=== PATIENT | female | born 1985 | race Two or more races ===

== ENCOUNTER → 2016-06-10 | Outpatient (CLI) | payer MEDICAID ==
[2016-06-10 17:42] LABS: Follicle Stimulating Hormone 3.9 mIU/mL; Prolactin 20.6 ng/mL (3.0-18.6)
--- NOTE | 2016-06-10 19:15 | US ---
EXAMINATION TYPE: US pelvic complete DATE OF EXAM: 06/10/2016 5:11 PM COMPARISON: NONE CLINICAL HISTORY: R93.8 Thickened endometrium. TECHNIQUE: Transabdominal (TA) Date of LMP: 05/05/16 EXAM MEASUREMENTS: Uterus: 10.1 x 4.6 x6.0 cm Endometrial Stripe: 1.0 cm Right Ovary: 3.1 x 2.2. x 2.4 cm Left Ovary: 2.1 x 1.8 x 1.8 cm TECHNOLOGIST IMPRESSION: 1. Uterus: Anteverted 2. Endometrium: wnl 3. Right Ovary: wnl 4. Left Ovary: wnl 5. Bilateral Adnexa: wnl 6. Posterior cul-de-sac: wnl IMPRESSION: Negative transabdominal pelvic sonogram. No endometrial thickening seen. Endometrium is 1 0 mm.
== END | disposition home or self-care (01) ==
LOC: RADUSWWP 16:16
PROVIDERS: ATTEND Obstetrics & Gynecology
DX: R93.8 Abnormal findings on diagnostic imaging of other specified body structures (principal)
CPT/HCPCS: 36415; 76856; 82670; 83001; 83002; 84146; 84443

== ENCOUNTER → 2016-06-10 | Outpatient (CLI) | payer MEDICAID | END | disposition home or self-care (01) | LOC: LABWHC1 16:32 | PROVIDERS: ATTEND Obstetrics & Gynecology | DX: Z53.9 Procedure and treatment not carried out, unspecified reason (principal) ==

== ENCOUNTER 2017-02-10 15:10 | Emergency (ER) | payer MEDICAID ==
[2017-02-10] MEDS ORDERED: KETOROLAC 30 MG/ML 1 ML VIAL IVP STA (17:18)
[2017-02-10] MEDS ORDERED: METOCLOPRAMIDE 5 MG/ML 2 ML VIAL IVP STA (17:18)
[2017-02-10] MEDS ORDERED: diphenhydrAMINE 50 MG/ML 1 ML VIAL IVP STA (17:18)
[2017-02-10] MEDS ORDERED: SODIUM CHLORIDE 0.9% 1,000 ML IV ONE (17:18)
--- NOTE | 2017-02-10 17:22 | ED ---
Headache HPI - General Chief Complaint: Headache Stated Complaint: Headache Time Seen by Provider: 02/10/17 17:03 Source: RN notes reviewed, old records reviewed Mode of arrival: ambulatory Limitations: no limitations - History of Present Illness Initial Comments: 31-year-old female presents emergency Department chief complaint of increased sinus pressure and headache for the past 3 days. Patient reports she has diagnosis of sinusitis by her primary care provider on Friday was started on Bactrim. He told her to discontinue taking Mucinex DM or other decongestant medicine as it would not continue to help. She reports that over the past day she's had severe headaches. She reports that whenever she lays down or sharp position she has severe pressure in her head. Patient states that she's had no fever or chills. Patient states that she has had a mild productive cough. Patient relates that she's been taking her antibiotics as well as using a nasal spray. Patient reports she has been testing for ALLERGIES. She does take Claritin every single day. Patient relates that the headaches and sinus pressure don't seem to be getting any better. She is currently on her menstrual cycle and took tramadol for menstrual cramping. She reports that that somewhat helped with her headache. Patient is concerned he does not she's having some pain and tenderness in the left anterior and behind the left ear. - Related Data Home Medications Medication Instructions Recorded Confirmed Fluticasone Nasal [place] [Flonase 2 spr EA NOSTRIL DAILY 09/20/15 02/10/17 Nasal [place]] Naproxen Sodium [Aleve] 220 mg PO BID PRN 02/10/17 02/10/17 Sulfamethoxazole/Trimethoprim 1 tab PO BID 02/10/17 02/10/17 [Bactrim DS 800-160 mg] traMADol HCL [Ultram] 50 - 100 mg PO Q6HR PRN 02/10/17 02/10/17 Previous Rx's Medication Instructions Recorded guaiFENesin-DM 600/30MG [Mucinex 1 each PO Q12HR #20 tab.er.12h 02/10/17 Dm] Allergies Allergy/AdvReac Type Severity Reaction Status Date / Time acetaminophen [From Vicodin] Allergy anxiety Verified 02/10/17 17:20 attack states "tylenol ok" hydrocodone bitartrate Allergy anxiety Verified 02/10/17 17:20 [From Vicodin] attack states "tylenol ok" hydromorphone HCl Allergy anxiety Verified 02/10/17 17:20 [From Dilaudid] attack peanut Allergy Anaphylaxis Verified 02/10/17 17:20 amoxicillin [From Augmentin] AdvReac Nausea & Verified 02/10/17 17:20 Vomiting clavulanic acid AdvReac Nausea & Verified 02/10/17 17:20 [From Augmentin] Vomiting Review of Systems ROS Statement: Those systems with pertinent positive or pertinent negative responses have been documented in the HPI. ROS Other: All systems not noted in ROS Statement are negative. Past Medical History Past Medical History: GERD/Reflux Additional Past Medical History / Comment(s): Recently has noticed b/p has been running high,diarrhea off and on for approx 2 yrs-recently worsen,undergoing alg testing History of Any Multi-Drug Resistant Organisms: None Reported Past Surgical History: Cholecystectomy, Orthopedic Surgery Additional Past Surgical History / Comment(s): carpel tunnel rt wrist,wisdom teeth Past Anesthesia/Blood Transfusion Reactions: No Reported Reaction Past Psychological History: No Psychological Hx Reported Smoking Status: Never smoker - Past Family History Mother Family Medical History: Hypertension Additional Family Medical History / Comment(s): heart problems,stomach ulcers Father Additional Family Medical History / Comment(s): depression General Exam - General Exam Comments Initial Comments: This is a 31-year-old female. No distress. Limitations: no limitations General appearance: alert, in no apparent distress Head exam: Present: atraumatic, normocephalic, normal inspection Eye exam: Present: normal appearance, PERRL, EOMI. Absent: scleral icterus, conjunctival injection, periorbital swelling ENT exam: Present: normal exam, normal oropharynx, mucous membranes moist, other (Is tenderness over the left mastoid process. No redness or warmth over the area.). Absent: TM's normal bilaterally (Erythematous bulging left TM.) Neck exam: Present: normal inspection, other (Has full range of motion of the neck. No meningeal signs.). Absent: tenderness, meningismus, lymphadenopathy Respiratory exam: Present: normal lung sounds bilaterally. Absent: respiratory distress, wheezes, rales, rhonchi, stridor Cardiovascular Exam: Present: regular rate, normal rhythm, normal heart sounds. Absent: systolic murmur, diastolic murmur, rubs, gallop, clicks GI/Abdominal exam: Present: soft, normal bowel sounds. Absent: distended, tenderness, guarding, rebound, rigid Extremities exam: Present: normal inspection Back exam: Present: normal inspection Neurological exam: Present: alert, oriented X3, CN II-XII intact Psychiatric exam: Present: normal affect, normal mood Skin exam: Present: warm, dry, intact, normal color. Absent: rash Course Vital Signs 02/10/17 02/10/17 15:14 17:48 Temperature 99.2 F Pulse Rate 91 88 Respiratory 17 18 Rate Blood Pressure 132/82 153/69 O2 Sat by Pulse 100 98 Oximetry Medical Decision Making - Medical Decision Making 31-year-old female presents emergency Department chief complaint of increased headache and migraine-like symptoms with tightness pressure and congestion. She started on Bactrim on Friday. She reports that she's not getting any better and was concerned about headache. PCP told her to discontinue taking decongestant medicine. At this time patient's labwork was reviewed and within normal limits. She was somewhat tender over the left mastoid. CT brain and sinuses performed and negative for any acute process. No sign of mastoiditis. Patient will be discharged at this time advised to continue Bactrim antibiotics as well as taking decongestant medications. Discusses could likely be a viral illness and antibiotics will really not make much of a difference. Patient is very on a nasal spray. Discussed the importance of taking ALLERGY decongestant medicine. Patient advised to increase fluids. Patient written a note for work. Return parameters were discussed. - Lab Data Result diagrams: 02/10/17 17:46 02/10/17 17:46 Lab Results 02/10/17 02/10/17 Range/Units 17:46 17:46 WBC 5.9 (3.8-10.6) k/uL RBC 4.00 (3.80-5.40) m/uL Hgb 12.3 (11.4-16.0) gm/dL Hct 38.1 (34.0-46.0) % MCV 95.1 (80.0-100.0) fL MCH 30.8 (25.0-35.0) pg MCHC 32.4 (31.0-37.0) g/dL RDW 13.5 (11.5-15.5) % Plt Count 334 (150-450) k/uL Neutrophils % 61 % Lymphocytes % 29 % Monocytes % 6 % Eosinophils % 1 % Basophils % 1 % Neutrophils # 3.6 (1.3-7.7) k/uL Lymphocytes # 1.7 (1.0-4.8) k/uL Monocytes # 0.4 (0-1.0) k/uL Eosinophils # 0.1 (0-0.7) k/uL Basophils # 0.1 (0-0.2) k/uL Sodium 138 (137-145) mmol/L Potassium 4.2 (3.5-5.1) mmol/L Chloride 107 (98-107) mmol/L Carbon Dioxide 21 L (22-30) mmol/L Anion Gap 10 mmol/L BUN 15 (7-17) mg/dL Creatinine 0.91 (0.52-1.04) mg/dL Est GFR (MDRD) Af Amer >60 (>60 ml/min/1.73 sqM) Est GFR (MDRD) Non-Af >60 (>60 ml/min/1.73 sqM) Glucose 88 (74-99) mg/dL Calcium 9.1 (8.4-10.2) mg/dL - Radiology Data Radiology results: report reviewed Normal computed tomography scan of sinuses. Orbital margins are intact. Normal aeration of the paranasal sinuses. There is bilateral pain C of the ostiomeatal. Nasal bone is intact. Maxilla intact. No sign of retro-orbital mass. Computed tomography scan of the brain. Disposition Clinical Impression: Sinus headache, Migraine Disposition: HOME SELF-CARE Condition: Good Instructions: Acute Headache (ED), Sinusitis (ED) Additional Instructions: Patient advised to continue decongestant medicine. Recommended follow-up with primary care provider within the next few days. Patient should alternate between Motrin or Tylenol for pain. Return to the emergency department if any alarming signs or symptoms occur. Prescriptions: guaiFENesin-DM 600/30MG [Mucinex Dm] 1 each PO Q12HR #20 tab.er.12h Referrals: Javier Garcia DO [Primary Care Provider] - 1-2 days Time of Disposition: 18:36
[2017-02-10 17:49] VITALS: RESP 18
[2017-02-10 17:57] LABS: Basophils # (A) 0.1 k/uL (0-0.2); Basophils % (A) 1 %; CH 31.1; CHCM 32.8; Eosinophils # (A) 0.1 k/uL (0-0.7); Eosinophils % (A) 1 %; HCT 38.1 % (34.0-46.0); HGB 12.3 gm/dL (11.4-16.0); Luc # (Auto) 0.12; Luc % (Auto) 2; Lymphocytes # (A) 1.7 k/uL (1.0-4.8); Lymphocytes % (A) 29 %; MCH 30.8 pg (25.0-35.0); MCHC 32.4 g/dL (31.0-37.0); MCV 95.1 fL (80.0-100.0); Mean Platelet Volume 7.2; Monocytes # (A) 0.4 k/uL (0-1.0); Monocytes % (A) 6 %; Neutrophils # (A) 3.6 k/uL (1.3-7.7); Neutrophils % (A) 61 %; RDW 13.5 % (11.5-15.5); WBC 5.9 k/uL (3.8-10.6)
[2017-02-10 18:10] LABS: Anion Gap 10 mmol/L; Blood Urea Nitrogen 15 mg/dL (7-17); Calcium 9.1 mg/dL (8.4-10.2); Carbon Dioxide 21 mmol/L (22-30); Chloride 107 mmol/L (98-107); Glucose 88 mg/dL (74-99); Non-African American GFR(MDRD) >60 (>60 ml/min/1.73 sqM); Potassium 4.2 mmol/L (3.5-5.1); Sodium 138 mmol/L (137-145)
--- NOTE | 2017-02-10 18:19 | CT ---
EXAMINATION TYPE: CT brain wo con DATE OF EXAM: 02/10/2017 COMPARISON: NONE HISTORY: Headache and visual disturbance. CT DLP: 1126.5 mGycm. Automated Exposure Control for Dose Reduction was Utilized. TECHNIQUE: CT scan of the head is performed without contrast. FINDINGS: Ventricles and sulci appear normal. There is no mass effect nor midline shift. There is n o sign of intracranial hemorrhage. The calvarium is intact. CONCLUSION: Normal CT scan of the brain.
--- NOTE | 2017-02-10 18:22 | CT ---
EXAMINATION TYPE: CT sinus wo con DATE OF EXAM: 02/10/2017 COMPARISON: NONE HISTORY: Headache and visual disturbance. CT DLP: 673.7 mGycm. Automated Exposure Control for Dose Reduction was Utilized. TECHNIQUE: CT scan of the sinuses is performed without contrast, axial images are obtained, coronal r eformatted images are also reviewed. FINDINGS: Orbital margins are intact. There is normal aeration of the paranasal sinuses. There is brandy ateral patency of the ostiomeatal complex. Nasal bone is intact. Maxilla is intact. There is no sign of retro-orbital mass. CONCLUSION: Normal CT scan of the sinuses.
[2017-02-10 19:02] VITALS: BP 122/75; PULSE 82; TEMP 97.9
== END 2017-02-10 19:03 | disposition home or self-care (01) ==
LOC: EC 15:10
DX: G43.909 Migraine, unspecified, not intractable, without status migrainosus (principal); J34.89 Other specified disorders of nose and nasal sinuses; H73.892 Other specified disorders of tympanic membrane, left ear; J32.9 Chronic sinusitis, unspecified; R05 Cough; H92.02 Otalgia, left ear; Z79.51 Long term (current) use of inhaled steroids; Z88.0 Allergy status to penicillin; Z88.5 Allergy status to narcotic agent; Z91.010 Allergy to peanuts
CPT/HCPCS: 99284 ×2; 96374 ×2; 96375 ×3; 96361 ×2; 36415; 80048; 85025; 70450; 70486; J1200; J2765; J1885

== ENCOUNTER 2017-10-18 17:41 | Emergency (ER) | payer MEDICAID ==
[2017-10-18 17:51] VITALS: RESP 18
--- NOTE | 2017-10-18 18:01 | ED ---
General Adult HPI - General Chief complaint: Chest Pain Stated complaint: CHEST PAIN, DOWN LEFT ARM Time Seen by Provider: 10/18/17 17:58 Source: patient, RN notes reviewed, old records reviewed Mode of arrival: wheelchair Limitations: no limitations - History of Present Illness Initial comments: 18 female the ER for evaluation. Patient presents ER today for evaluation regarding chest pain. Left-sided chest pain left-sided chest pain rating left arm. Patient has mild anxiety. Patient has history of cholecystectomy. No recent travel history no sick contacts no fevers no cough or congestion or shortness of breath. No trauma. - Related Data Home Medications Medication Instructions Recorded Confirmed Fluticasone Nasal [place] [Flonase 2 spr EA NOSTRIL DAILY 09/20/15 02/10/17 Nasal [place]] Naproxen Sodium [Aleve] 220 mg PO BID PRN 02/10/17 02/10/17 Sulfamethoxazole/Trimethoprim 1 tab PO BID 02/10/17 02/10/17 [Bactrim DS 800-160 mg] traMADol HCL [Ultram] 50 - 100 mg PO Q6HR PRN 02/10/17 02/10/17 Previous Rx's Medication Instructions Recorded guaiFENesin-DM 600/30MG [Mucinex 1 each PO Q12HR #20 tab.er.12h 02/10/17 Dm] Allergies Allergy/AdvReac Type Severity Reaction Status Date / Time acetaminophen [From Vicodin] Allergy anxiety Verified 10/18/17 17:49 attack states "tylenol ok" hydrocodone bitartrate Allergy anxiety Verified 10/18/17 17:49 [From Vicodin] attack states "tylenol ok" hydromorphone HCl Allergy anxiety Verified 10/18/17 17:49 [From Dilaudid] attack peanut Allergy Anaphylaxis Verified 10/18/17 17:49 amoxicillin [From Augmentin] AdvReac Nausea & Verified 10/18/17 17:49 Vomiting clavulanic acid AdvReac Nausea & Verified 10/18/17 17:49 [From Augmentin] Vomiting Review of Systems ROS Statement: Those systems with pertinent positive or pertinent negative responses have been documented in the HPI. ROS Other: All systems not noted in ROS Statement are negative. Past Medical History Past Medical History: GERD/Reflux, Hypertension, Pneumonia Additional Past Medical History / Comment(s): Recently has noticed b/p has been running high,diarrhea off and on for approx 2 yrs-recently worsen,undergoing alg testing History of Any Multi-Drug Resistant Organisms: None Reported Past Surgical History: Cholecystectomy, Orthopedic Surgery Additional Past Surgical History / Comment(s): carpel tunnel rt wrist,wisdom teeth Past Anesthesia/Blood Transfusion Reactions: No Reported Reaction Past Psychological History: No Psychological Hx Reported Smoking Status: Never smoker Past Alcohol Use History: None Reported Past Drug Use History: None Reported - Past Family History Mother Family Medical History: Hypertension Additional Family Medical History / Comment(s): heart problems,stomach ulcers Father Additional Family Medical History / Comment(s): depression General Exam Limitations: no limitations Course Vital Signs 10/18/17 10/18/17 17:49 18:15 Temperature 98.5 F Pulse Rate 91 86 Respiratory 18 18 Rate Blood Pressure 126/80 138/78 O2 Sat by Pulse 100 99 Oximetry - Reevaluation(s) Reevaluation #1: 10/18/17 19:43 Patient has no significant current chest pain. Has remained without chest pain throughout stay EKG Findings - EKG Comments: EKG Findings:: EKG shows sinus rhythm rate of 92, FL 132, QRS 80, QTC 467 Medical Decision Making - Medical Decision Making 32 female to the ER with chest pain, remains asymptomatic throughout ER stay. Patient can be discharged home - Lab Data Result diagrams: 10/18/17 18:04 10/18/17 18:04 Lab Results 10/18/17 10/18/17 10/18/17 Range/Units 18:04 18:04 18:04 WBC 7.2 (3.8-10.6) k/uL RBC 3.87 (3.80-5.40) m/uL Hgb 11.1 L (11.4-16.0) gm/dL Hct 33.8 L (34.0-46.0) % MCV 87.4 (80.0-100.0) fL MCH 28.6 (25.0-35.0) pg MCHC 32.7 (31.0-37.0) g/dL RDW 13.3 (11.5-15.5) % Plt Count 354 (150-450) k/uL Neutrophils % 62 % Lymphocytes % 28 % Monocytes % 7 % Eosinophils % 1 % Basophils % 1 % Neutrophils # 4.5 (1.3-7.7) k/uL Lymphocytes # 2.0 (1.0-4.8) k/uL Monocytes # 0.5 (0-1.0) k/uL Eosinophils # 0.1 (0-0.7) k/uL Basophils # 0.0 (0-0.2) k/uL PT (9.0-12.0) sec INR (<1.2) APTT (22.0-30.0) sec D-Dimer (<0.60) mg/L FEU Sodium 140 (137-145) mmol/L Potassium 3.8 (3.5-5.1) mmol/L Chloride 105 (98-107) mmol/L Carbon Dioxide 23 (22-30) mmol/L Anion Gap 12 mmol/L BUN 16 (7-17) mg/dL Creatinine 0.89 (0.52-1.04) mg/dL Est GFR (CKD-EPI)AfAm >90 (>60 ml/min/1.73 sqM) Est GFR (CKD-EPI)NonAf 85 (>60 ml/min/1.73 sqM) Glucose 98 (74-99) mg/dL Calcium 9.6 (8.4-10.2) mg/dL Magnesium 2.0 (1.6-2.3) mg/dL Total Bilirubin 0.4 (0.2-1.3) mg/dL AST 53 H (14-36) U/L ALT 65 H (9-52) U/L Alkaline Phosphatase 71 (38-126) U/L Total Creatine Kinase 251 H (30-135) U/L CK-MB (CK-2) 1.8 (0.0-2.4) ng/mL CK-MB (CK-2) Rel Index 0.7 Troponin I <0.012 (0.000-0.034) ng/mL NT-Pro-B Natriuret Pep pg/mL Total Protein 7.6 (6.3-8.2) g/dL Albumin 4.5 (3.5-5.0) g/dL Lipase 91 (23-300) U/L 10/18/17 10/18/17 Range/Units 18:04 18:04 WBC (3.8-10.6) k/uL RBC (3.80-5.40) m/uL Hgb (11.4-16.0) gm/dL Hct (34.0-46.0) % MCV (80.0-100.0) fL MCH (25.0-35.0) pg MCHC (31.0-37.0) g/dL RDW (11.5-15.5) % Plt Count (150-450) k/uL Neutrophils % % Lymphocytes % % Monocytes % % Eosinophils % % Basophils % % Neutrophils # (1.3-7.7) k/uL Lymphocytes # (1.0-4.8) k/uL Monocytes # (0-1.0) k/uL Eosinophils # (0-0.7) k/uL Basophils # (0-0.2) k/uL PT 9.4 (9.0-12.0) sec INR 0.9 (<1.2) APTT 21.7 L (22.0-30.0) sec D-Dimer 0.54 (<0.60) mg/L FEU Sodium (137-145) mmol/L Potassium (3.5-5.1) mmol/L Chloride (98-107) mmol/L Carbon Dioxide (22-30) mmol/L Anion Gap mmol/L BUN (7-17) mg/dL Creatinine (0.52-1.04) mg/dL Est GFR (CKD-EPI)AfAm (>60 ml/min/1.73 sqM) Est GFR (CKD-EPI)NonAf (>60 ml/min/1.73 sqM) Glucose (74-99) mg/dL Calcium (8.4-10.2) mg/dL Magnesium (1.6-2.3) mg/dL Total Bilirubin (0.2-1.3) mg/dL AST (14-36) U/L ALT (9-52) U/L Alkaline Phosphatase (38-126) U/L Total Creatine Kinase (30-135) U/L CK-MB (CK-2) (0.0-2.4) ng/mL CK-MB (CK-2) Rel Index Troponin I (0.000-0.034) ng/mL NT-Pro-B Natriuret Pep 94 pg/mL Total Protein (6.3-8.2) g/dL Albumin (3.5-5.0) g/dL Lipase (23-300) U/L - Radiology Data Radiology results: report reviewed (Chest x-ray CTA chest negative), image reviewed Disposition Clinical Impression: Chest pain Disposition: HOME SELF-CARE Condition: Good Instructions: Chest Pain (ED) Is patient prescribed a controlled substance at d/c from ED?: No Referrals: Javier Garcia DO [Primary Care Provider] - 1-2 days
[2017-10-18] MEDS ORDERED: SODIUM CHLORIDE 0.9% 1,000 ML IV STA ×2 (18:38)
--- NOTE | 2017-10-18 18:46 | XR ---
EXAMINATION TYPE: XR chest 2V DATE OF EXAM: 10/18/2017 COMPARISON: NONE HISTORY: Chest pain TECHNIQUE: Frontal and lateral views of the chest are obtained. FINDINGS: The heart and mediastinum are normal. Lungs are clear. Diaphragm is normal. Bony thorax ap pears normal. IMPRESSION: Normal chest
[2017-10-18 18:49] LABS: Basophils % (A) 1 %; Eosinophils # (A) 0.1 k/uL (0-0.7); Eosinophils % (A) 1 %; HCT 33.8 % (34.0-46.0); HGB 11.1 gm/dL (11.4-16.0); Lymphocytes % (A) 28 %; MCH 28.6 pg (25.0-35.0); MCHC 32.7 g/dL (31.0-37.0); MCV 87.4 fL (80.0-100.0); Mean Platelet Volume 6.6; Monocytes # (A) 0.5 k/uL (0-1.0); Monocytes % (A) 7 %; Neutrophils # (A) 4.5 k/uL (1.3-7.7); Neutrophils % (A) 62 %; Platelet Count 354 k/uL (150-450); RBC 3.87 m/uL (3.80-5.40); RDW 13.3 % (11.5-15.5); WBC 7.2 k/uL (3.8-10.6)
[2017-10-18 18:59] LABS: ALT 65 U/L (9-52); AST 53 U/L (14-36); Albumin 4.5 g/dL (3.5-5.0); Alkaline Phosphatase 71 U/L (38-126); Anion Gap 12 mmol/L; Blood Urea Nitrogen 16 mg/dL (7-17); Calcium 9.6 mg/dL (8.4-10.2); Carbon Dioxide 23 mmol/L (22-30); Chloride 105 mmol/L (98-107); Glucose 98 mg/dL (74-99); Lipase 91 U/L (23-300); Potassium 3.8 mmol/L (3.5-5.1); Sodium 140 mmol/L (137-145); Total Bilirubin 0.4 mg/dL (0.2-1.3); Total Protein 7.6 g/dL (6.3-8.2)
[2017-10-18 19:10] LABS: D-Dimer 0.54 mg/L FEU (<0.60); INR 0.9 (<1.2); Prothrombin Time 9.4 sec (9.0-12.0)
[2017-10-18 19:14] LABS: Creatine Kinase 251 U/L (30-135)
[2017-10-18 19:21] LABS: Partial Thromboplastin Time 21.7 sec (22.0-30.0)
[2017-10-18 19:26] LABS: Creatine Kinase MB 1.8 ng/mL (0.0-2.4); Troponin I <0.012 ng/mL (0.000-0.034)
--- NOTE | 2017-10-18 19:38 | CT ---
EXAMINATION TYPE: CT angio chest DATE OF EXAM: 10/18/2017 7:21 PM COMPARISON: NONE HISTORY: Chest pains CT DLP: 648.70 mGycm Automated exposure control for dose reduction was used. CONTRAST: CTA scan of the thorax is performed with IV Contrast, patient injected with 100 mL of Isovue 370, pul monary embolism protocol. There are 3-D post processed images.. FINDINGS: The lungs are clear of infiltrate. There is no pleural effusion. There is no evidence of a pulmonary mass. Heart size is normal. There is no pericardial effusion. Thoracic aorta appears normal. There is no mediastinal adenopathy. There are no hilar masses. There is normal contrast opacification of the pulmonary arteries. I see no filling defect. IMPRESSION: NORMAL CT ANGIOGRAM OF THE CHEST. NO EVIDENCE OF PULMONARY EMBOLISM.
[2017-10-18 19:50] VITALS: BP 121/70; PULSE 79; TEMP 97.9
== END 2017-10-18 19:53 | disposition home or self-care (01) ==
LOC: EC 17:41
DX: R07.9 Chest pain, unspecified (principal); F41.9 Anxiety disorder, unspecified; K21.9 Gastro-esophageal reflux disease without esophagitis; Z79.51 Long term (current) use of inhaled steroids; Z88.6 Allergy status to analgesic agent; Z88.5 Allergy status to narcotic agent; Z91.010 Allergy to peanuts; Z88.0 Allergy status to penicillin
CPT/HCPCS: 99285; 96360; 36415; 93005; 85379; 83880; 80053; 82550; 82553; 83690; 83735; 84484; 85025; 85610; 85730; 71046; 71275; Q9967

== ENCOUNTER → 2017-12-24 | Outpatient (CLI) | payer MEDICAID ==
--- NOTE | 2017-12-25 08:32 | MM ---
Reason for exam: clinical finding. Baseline mammogram. History: Patient is nulliparous. Family history of breast cancer in aunt at age 60. Taking hormonal contraceptives beginning at age 26. Physical Findings: Nurse did not find any significant physical abnormalities on exam. MG 3D Diag Mammo W/Cad ROMEO Bilateral CC and MLO view(s) were taken. XCCL view(s) were taken of the right breast. There are scattered fibroglandular densities. There is no discrete abnormality. No significant new findings when compared with previous films. These results were verbally communicated with the patient and result sheet given to the patient on 12/24/17. ASSESSMENT: Negative, BI-RAD 1 RECOMMENDATION: Routine screening mammogram of both breasts at age 38.
== END | disposition home or self-care (01) ==
LOC: RADMAMWWP 15:39
PROVIDERS: ATTEND Family Medicine
DX: N64.59 Other signs and symptoms in breast (principal)
CPT/HCPCS: 77062; 77066

== ENCOUNTER → 2018-02-04 | Outpatient (CLI) | payer MEDICAID ==
[2018-02-04 17:24] LABS: Basophils % (A) 1 %; Eosinophils # (A) 0.1 k/uL (0-0.7); Eosinophils % (A) 1 %; HCT 29.1 % (34.0-46.0); HGB 8.8 gm/dL (11.4-16.0); Hypochromasia Marked; Lymphocytes # (A) 2.3 k/uL (1.0-4.8); Lymphocytes % (A) 34 %; MCH 23.7 pg (25.0-35.0); MCHC 30.4 g/dL (31.0-37.0); MCV 78.1 fL (80.0-100.0); Mean Platelet Volume 6.4; Monocytes # (A) 0.4 k/uL (0-1.0); Monocytes % (A) 6 %; Neutrophils # (A) 3.8 k/uL (1.3-7.7); Neutrophils % (A) 57 %; Platelet Count 472 k/uL (150-450); RBC 3.73 m/uL (3.80-5.40); RDW 15.1 % (11.5-15.5); WBC 6.7 k/uL (3.8-10.6)
== END | disposition home or self-care (01) ==
LOC: LABWHC1 16:54 → LABPAT 17:08
PROVIDERS: ATTEND Obstetrics & Gynecology
DX: Z01.812 Encounter for preprocedural laboratory examination (principal); I10 Essential (primary) hypertension; D64.9 Anemia, unspecified; N92.1 Excessive and frequent menstruation with irregular cycle
CPT/HCPCS: 36415; 85025

== ENCOUNTER 2018-02-10 05:54 | Day surgery (SDC) | payer MEDICAID ==
[2018-02-03 16:01] VITALS: BMI 33.0
--- NOTE | 2018-02-06 14:41 | HP ---
HISTORY AND PHYSICAL DATE OF PROCEDURE: 02/09/2018. HISTORY: This is a 32-year-old 0 woman with a longstanding history of menorrhagia and anemia. She has failed medical management with oral contraceptive pills and she is therefore scheduled for hysteroscopy and D and C. ALLERGIES: ALLERGY IS DILAUDID AND VICODIN CAUSE ANXIETY. MEDICATIONS: Ortho Tri-Cyclen Lo, omeprazole 40 mg daily, Carafate 1 g daily, doxycycline 100 mg daily, fluconazole 100 mg p.r.n., montelukast 10 mg daily, Mucinex D daily, Symbicort daily. PAST MEDICAL HISTORY: Asthma and reflux. PAST SURGICAL HISTORY: Cholecystectomy in 2011, carpal tunnel surgery 2008. PLASTIC CARD GRADER CARDROOM PAST HISTORY: She is a 1 with no history of abnormal Pap smears or STDs. SOCIAL HISTORY: She is . Negative for tobacco, alcohol, and drug use. FAMILY HISTORY: Significant for breast cancer in an aunt. Diabetes in grandfather and hypertension in her mother and a brother with spina bifida. REVIEW OF SYSTEMS: Positive for fatigue. Negative for fevers, chills, weight gain, weight loss, nausea, vomiting, diarrhea, constipation, headaches, visual changes, shortness of breath or chest pain. PHYSICAL EXAM: Blood pressure 120/72, pulse 104, height 5 feet 8 inches, weight 237 pounds. In general, this is a pleasant female in no apparent distress. HEENT exam is unremarkable for palpable lymphadenopathy or thyromegaly. The lungs are clear to auscultation bilaterally without wheezes. The heart is regular rate and rhythm. ABDOMEN: Soft and nontender with no rebound, no guarding and no flank pain. On pelvic examination, she has normal female external genitalia without lesions or irritation. On bimanual examination, the cervix is free of any gross lesions. Uterus is freely mobile and not enlarged. There are no adnexal abnormalities appreciated. ASSESSMENT: A 32-year-old 0 woman with dysfunctional uterine bleeding refractory to medical management. She is scheduled to undergo diagnostic hysteroscopy with D and C. Risks of this procedure have been reviewed with the patient and include but are not limited to bleeding, transfusion, infection, uterine perforation with possible injury to pelvic structures. The patient understands these risks and agrees to proceed. MMODL / IJN: [id number] /
[~2018-02-10 05:54] MED LIST: HYDROmorphone 0.5 MG/0.5 ML SYRINGE IVP PRN; LACTATED RINGERS 1,000 ML IV SCH; Pre Op ABX Message 1 EACH MISC MISCELLANE ONE
[2018-02-10] MEDS ORDERED: LIDOCAINE 1% 20 ML VIAL (10MG/ML) FOR IV START INTRADERMA ONE (06:19)
[2018-02-10] MEDS: ONDANSETRON 4 MG/2 ML VIAL IVP ONE ×2 (06:25→09:03)
[2018-02-10] MEDS ORDERED: LIDOCAINE 1%-EPI 1:100,000 20 ML VIAL SUBMUCOSAL ONE ×2 (07:24→07:44)
[2018-02-10] MEDS ORDERED: fentaNYL (PF) 50 MCG/ML 2 ML AMP ONE (07:30)
[2018-02-10] MEDS ORDERED: LIDOCAINE 1% INJ 10MG/ML (20 ML MDV) ONE (07:30)
[2018-02-10] MEDS ORDERED: MIDAZOLAM 2 MG/2 ML VIAL ONE (07:30)
[2018-02-10] MEDS ORDERED: SUCCINYLCHOLINE CHLORIDE 100 MG/5 ML SYR IV ONE (07:30)
[2018-02-10] MEDS ORDERED: PROPOFOL 10 MG/ML 20 ML VIAL IV ONE (07:30)
--- NOTE | 2018-02-10 07:59 | P.OP ---
Date of Procedure: 02/10/18 Preoperative Diagnosis: Dysfunctional uterine bleeding Postoperative Diagnosis: Dysfunctional uterine bleeding Submucosal fibroid Procedure(s) Performed: Diagnostic hysteroscopy and D&C Anesthesia: KESHIAA Machine Setter Sheet Metal #1: Khloe Ocasio Estimated Blood Loss (ml): 10 IV fluids (ml): 400 Urine output (ml): 100 Pathology: other (Endometrial curettings) Condition: stable Disposition: PACU Indications for Procedure: Dysfunctional uterine bleeding and anemia Operative Findings: Fluffy endometrium with an intrauterine lesion emanating from the left fundal region consistent with endometrial polyp versus intramural fibroid. Description of Procedure: After the patient and her mother were met in the preoperative holding area and all questions were answered, she was taken to the operating room where anesthetic was administered without incident. She was in positioned, prepped and draped in the dorsal lithotomy position. Bladder was drained for 100 mL of clear urine. Speculum was placed in the vagina and the cervix was grasped anteriorly with a single-tooth tenaculum. Paracervical block with lidocaine plus epinephrine was placed. Uterus was sounded to 8.5 cm. The cervix was sequentially dilated to allow for passage of the diagnostic hysteroscope. This was introduced and the above findings were noted. Hysteroscope was removed and the cervix was further dilated to allow for passage of the sharp banjo curet. The stone polyp forceps were introduced the an attempt to remove the lesion seen of the hysteroscope. The curet was then introduced and the uterine cavity was circumferentially curettaged. Moderate amount of endometrial tissue was obtained. The hysteroscope was reintroduced and it did appear as though the polyp or fibroid remained. A second pass therefore was taken with a polyp forceps and endometrial curettings and tissue consistent with this lesion was obtained. Instruments removed from the cervix and it was observed. No active bleeding was noted. All instruments were then removed from the vagina and the patient was awoken from anesthetic without incident. She was transported to recovery area in stable condition. All counts reported to me as correct by the operating room staff.
[2018-02-10] MEDS ORDERED: ACETAMINOPHEN IV (For NPO) 1,000 MG/100 ML VIAL IVPB ONE (08:11)
[2018-02-10 08:12] VITALS: TEMP 98.5
[2018-02-10] MEDS: fentaNYL (PF) 50 MCG/ML 2 ML AMP IV PRN ×2 (08:19→08:31)
[2018-02-10 08:20] VITALS: RESP 16
[2018-02-10] MEDS ORDERED: PROMETHAZINE INJ 25 MG/ML 1 ML VIAL IVPB ONE (09:06)
[2018-02-10] MEDS ORDERED: traMADol 50 MG TAB PO ONE (09:35)
[2018-02-10 09:56] VITALS: BP 114/78; PULSE 77
== END 2018-02-10 10:26 | disposition home or self-care (01) ==
LOC: OR 05:54
PROVIDERS: ATTEND Obstetrics & Gynecology
DX: D25.0 Submucous leiomyoma of uterus (principal); Z79.2 Long term (current) use of antibiotics; Z79.3 Long term (current) use of hormonal contraceptives; Z79.51 Long term (current) use of inhaled steroids; Z79.899 Other long term (current) drug therapy; J45.909 Unspecified asthma, uncomplicated; K21.9 Gastro-esophageal reflux disease without esophagitis; Z88.5 Allergy status to narcotic agent; Z88.0 Allergy status to penicillin; N93.8 Other specified abnormal uterine and vaginal bleeding
CPT/HCPCS: 81025; 88305; 58558; J2250; J2550; J2405; J2001; J3010; J0131; J0330; J2704

== ENCOUNTER → 2018-04-07 | Outpatient (CLI) | payer MEDICAID ==
--- NOTE | 2018-04-07 23:39 | CT ---
EXAMINATION TYPE: CT angio head neck DATE OF EXAM: 04/07/2018 COMPARISON: None HISTORY: 32-year-old female headache rt side, ringing in ears x3 weeks. Bruit over the right side of the neck. TECHNIQUE: Contiguous axial scanning of the head and neck performed with IV Contrast, patient injecte d with 65 mL of Isovue 370. Coronal/sagittal MIP reconstructions performed. Rotational 3-D reconstruc tions generated on a dedicated independent workstation. CT DLP: 382.4 mGycm Automated exposure control for dose reduction was used. FINDINGS: HEAD: No hydrocephalus, midline shift, or effacement of basal subarachnoid cisterns. 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 Paranasal sinuses and mastoid air cells are well pneumatized. Orbits and globes appear intact. Anterior and posterior circulations appear patent. No aneurysmal change, significant stenosis, or art erial occlusion seen. NECK: Conventional arch vessel branching anatomy. The brachiocephalic, right common carotid, and right inte rnal carotid arteries are widely patent with normal course and caliber. The left common and left internal carotid arteries are also patent with normal course and caliber. The vertebral arteries are codominant and patent throughout their course. Visualized upper lungs appear clear. IMPRESSION: 1. 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 2. NECK: UNREMARKABLE CTA NECK.
== END | disposition home or self-care (01) ==
LOC: RADCTMAIN 15:42
PROVIDERS: ATTEND Family Medicine
DX: H93.19 Tinnitus, unspecified ear (principal)
CPT/HCPCS: 70496; 70498; Q9967

== ENCOUNTER → 2018-06-19 | Outpatient (CLI) | payer MEDICAID ==
--- NOTE | 2018-06-19 18:24 | MR ---
EXAMINATION TYPE: MR angio head wo con DATE OF EXAM: 06/19/2018 COMPARISON: CT angiogram brain 04/07/2018 HISTORY: Headache TECHNIQUE: Time of flight images focusing on the [place] were performed without contrast. FINDINGS: The exam is stable. Internal carotid arteries, vertebrobasilar system are patent. There is no evident embolus, dissection, or aneurysm. Vertebral arteries are codominant. IMPRESSION: Normal MRA brain.
--- NOTE | 2018-06-20 15:41 | MR ---
EXAMINATION TYPE: MR brain wo/w con DATE OF EXAM: 06/19/2018 COMPARISON: None HISTORY: Headache TECHNIQUE: Multiplanar, multisequence images of the brain and brainstem is performed without and with IV contras t, utilizing 10 mL intravenous Gadavist . FINDINGS: Ventricles and sulci appear normal. There is no mass effect nor midline shift. There is no sign of intracranial hemorrhage. Corpus callosum appears normal. Sella turcica is normal. The brainst em is intact. There is no evidence of cortical infarct. Land-white matter structures have normal sign al pattern. There is no evidence of cerebral edema. There is minimal mucosal thickening in the maxill lauren sinuses. There is no pathologic enhancement. There is arterial flow demonstrated in the anterior middle and posterior cerebral arteries. There is normal contrast opacification of the venous sinuses. There is no evidence of orbital mass. Optic chiasm appears normal. IMPRESSION: Normal MR scan of the brain.
== END | disposition home or self-care (01) ==
LOC: RADMRIMAIN 15:32
PROVIDERS: ATTEND Otolaryngology
DX: R51 Headache (principal)
CPT/HCPCS: 70544; 70553; A9585

== ENCOUNTER → 2018-06-23 | Outpatient (CLI) | payer MEDICAID ==
[2018-06-23 10:20] LABS: Anion Gap 6 mmol/L; Blood Urea Nitrogen 16 mg/dL (7-17); Carbon Dioxide 25 mmol/L (22-30); Chloride 108 mmol/L (98-107); Glucose 91 mg/dL (74-99); Potassium 4.6 mmol/L (3.5-5.1); Sodium 139 mmol/L (137-145)
[2018-06-23 10:29] LABS: Anisocytosis Slight; Basophils # (A) 0.1 k/uL (0-0.2); Basophils % (A) 1 %; Eosinophils # (A) 0.1 k/uL (0-0.7); Eosinophils % (A) 2 %; HCT 31.3 % (34.0-46.0); HGB 9.2 gm/dL (11.4-16.0); Hypochromasia Marked; Lymphocytes # (A) 1.7 k/uL (1.0-4.8); Lymphocytes % (A) 36 %; MCH 21.9 pg (25.0-35.0); MCHC 29.2 g/dL (31.0-37.0); Mean Platelet Volume 5.4; Microcytosis Moderate; Monocytes # (A) 0.3 k/uL (0-1.0); Monocytes % (A) 6 %; Neutrophils # (A) 2.6 k/uL (1.3-7.7); Neutrophils % (A) 54 %; Platelet Count 481 k/uL (150-450); RBC 4.17 m/uL (3.80-5.40); RDW 17.5 % (11.5-15.5); WBC 4.8 k/uL (3.8-10.6)
== END | disposition home or self-care (01) ==
LOC: LABPAT 08:57
PROVIDERS: ATTEND Obstetrics & Gynecology
DX: Z01.812 Encounter for preprocedural laboratory examination (principal); N92.0 Excessive and frequent menstruation with regular cycle; D64.9 Anemia, unspecified; N94.6 Dysmenorrhea, unspecified; D25.9 Leiomyoma of uterus, unspecified
CPT/HCPCS: 36415; 80051; 82565; 82947; 84520; 85025; 87086

== ENCOUNTER 2018-06-30 07:34 | Observation (INO) | payer MEDICAID ==
[2018-06-25 08:18] VITALS: BMI 33.0
[~2018-06-30 07:34] MED LIST changes: +DEXAMETHASONE SOD PHOSPHATE 10 MG/ML 1 ML VIAL IV ONE; -HYDROmorphone 0.5 MG/0.5 ML SYRINGE IVP PRN; -LACTATED RINGERS 1,000 ML IV SCH; +MIDAZOLAM (PF) 2 MG/2 ML VIAL IV PRN; +ONDANSETRON 4 MG/2 ML VIAL IVP ONE; -Pre Op ABX Message 1 EACH MISC MISCELLANE ONE; +SCOPOLAMINE 1.5MG/72HR PATCH TRANSDERM ONE; +ceFAZolin IN SWFI 2 GM/20 ML SYRINGE IVP ONE
[2018-06-30] MEDS ORDERED: LIDOCAINE 1% 20 ML VIAL (10MG/ML) FOR IV START INTRADERMA ONE (08:04)
[2018-06-30] MEDS ORDERED: LACTATED RINGERS 1,000 ML IV ONE ×2 (08:24)
[2018-06-30] MEDS: LACTATED RINGERS 1,000 ML IV SCH ×2 (08:25→09:28)
[2018-06-30] MEDS ORDERED: NEOSTIGMINE 1 MG/ML 10 ML VIAL ONE (09:21)
[2018-06-30] MEDS ORDERED: fentaNYL (PF) 50 MCG/ML 2 ML AMP ONE (09:21)
[2018-06-30] MEDS ORDERED: SUCCINYLCHOLINE CHLORIDE 100 MG/5 ML SYR IV ONE (09:21)
[2018-06-30] MEDS ORDERED: LIDOCAINE 1% INJ 10MG/ML (20 ML MDV) ONE (09:21)
[2018-06-30] MEDS ORDERED: GLYCOPYRROLATE 0.2 MG/ML 2 ML VIAL ONE (09:21)
[2018-06-30] MEDS ORDERED: MIDAZOLAM 2 MG/2 ML VIAL ONE (09:21)
[2018-06-30] MEDS ORDERED: ROCURONIUM BROMIDE 10 MG/ML 10 ML VIAL IV ONE (09:21)
[2018-06-30] MEDS ORDERED: PROPOFOL 10 MG/ML 20 ML VIAL IV ONE (09:21)
[2018-06-30] MEDS ORDERED: BUPIVACAINE (PF) 0.25% 30 ML VIAL SQ ONE ×2 (09:49→11:33)
[2018-06-30] MEDS ORDERED: Acetaminophen-Codeine 300-30mg TAB PO PRN ×2 (11:38)
[2018-06-30] MEDS ORDERED: ONDANSETRON 4 MG/2 ML VIAL IVP PRN (11:38)
[2018-06-30] MEDS ORDERED: METOCLOPRAMIDE 5 MG/ML 2 ML VIAL IVP PRN (11:38)
[2018-06-30] MEDS ORDERED: SIMETHICONE 80 MG CHEWABLE PO PRN (11:38)
[2018-06-30] MEDS ORDERED: diphenhydrAMINE 50 MG/ML 1 ML VIAL IVP PRN (11:38)
--- NOTE | 2018-06-30 11:38 | P.OP ---
Date of Procedure: 06/30/18 Preoperative Diagnosis: Dysmenorrhea, menometrorrhagia Postoperative Diagnosis: Same Procedure(s) Performed: Robotic-assisted laparoscopic assisted vaginal hysterectomy and cystoscopy Anesthesia: CARINE Surgeon: Khloe Ocasio Lace Inspector #1: John Bradshaw Estimated Blood Loss (ml): 25 IV fluids (ml): 1,000 Urine output (ml): 350 Pathology: other (Bilateral fallopian tubes and uterus) Condition: stable Disposition: PACU Operative Findings: Normal appearing uterus, bilateral fallopian tubes and ovaries Description of Procedure: After the patient and her family were met in the preoperative holding area and all questions were answered, she was taken to the operating room where anesthetic was administered without incident. Appropriate timeout procedure was undertaken. She was in positioned, prepped and draped in the dorsal lithotomy position. Speculum was placed in the vagina and the [employer] uterine manipulator with a medium size cup was placed after the cervix was sequentially dilated. Uterine sound was 8 cm. Thomas catheter was then placed. Attention was then turned to the abdomen. The patient was placed in low lithotomy. A supraumbilical 12 mm skin incision was made. The anterior abdominal wall was elevated and the varies needle was introduced into the abdomen and saline drop test indicated intraperitoneal placement. Initial filling pressure was 3 mm. The abdomen was then insufflated to a total filling pressure of 15 mm of CO2 gas. The optical blade less trocar was utilized to introduce the camera. Intra -abdominal placement was confirmed. The patient was placed in Trendelenburg. Under direct visualization a right and left tubal she 8 mm ports were placed. A 10 mm left upper quadrant accessory port was placed. The da Babatunde robot was then docked in the usual fashion. Instruments were then introduced. The bipolar Melba graspers were in arm 2 and monopolar sarah in arm 1. Attention was then turned to the console. The pelvis was inspected and the above findings were noted. The right fallopian tube was then grasped and placed on countertraction. Electrocautery was then utilized to incise the mesosalpinx. The tubo-ovarian pedicle was then sequentially cauterized and cut. The round ligament was sequentially cauterized and cut. The anterior leaf of the broad ligament was entered anteriorly and incised down to the level of the bladder flap. The uterine vasculature was skeletonized on the right side. Similarly the left fallopian tube was grasped and the mesosalpinx was incised the tubo-ovarian pedicle was then sequentially cauterized and cut on the left the left round ligament was then sequentially cauterized and cut. The left and to leaf of the broad ligament was incised to meet the bladder flap there was already created in the anterior midline. The bladder was then bluntly and sharply dissected away from the anterior cervix with visualization of the cervical cup. The left uterine vasculature was then skeletonized and sequentially cauterized. The right uterine vasculature was skeletonized and cauterized. Laparotomy sponge was placed in the vagina. Anterior colpotomy was made and carried around the cervical cup anteriorly to posteriorly. The uterus was then delivered into the vagina. Instruments were changed to a suture cattle driver in arm 1 and long tipped grasper in arm 2. 20 self locking suture was then introduced, the lock. The cuff was then closed in a running fashion with the self locking suture. The pelvis was then irrigated and no active bleeding was noted. FloSeal was placed along the vaginal cuff for further hemostasis. The course of the right ureter was visualized and noted to be peristalsing the left ureter was obscured by bowel. Attention was then turned to cystoscopy. The 30 cystoscope was introduced into the bladder after removal of the Thomas catheter. There was no blood or suture material noted in the bladder. Immediate spill from both the right and left ureteral orifice see his was appreciated. Cystoscope was then removed and Thomas catheter was replaced. The robot was undocked and all ports were removed. The abdomen was desufflated of CO2 gas and the skin was closed with 4-0 Monocryl and dressing applied. Sponge and the vagina revealed no active bleeding from the vaginal cuff. The patient was awoken from anesthetic without incident and transported recovery area in stable condition. All counts reported to me as correct by the operating room staff.
[2018-06-30] MEDS ORDERED: FLUTICASONE 50MCG/SPRAY NASAL 16GM EA NOSTRIL PRN (11:41)
[2018-06-30] MEDS ORDERED: SYMBICORT 160-4.5 MCG INHALER INHALATION PRN (11:41)
[2018-06-30] MEDS ORDERED: LACTATED RINGERS 1,000 ML IV SCH (11:45)
[2018-06-30] MEDS: fentaNYL (PF) 50 MCG/ML 2 ML AMP IV PRN ×2 (12:05→12:22)
[2018-06-30] MEDS ORDERED: ACETAMINOPHEN IV (For NPO) 1,000 MG in EMPTY BAG 1 BAG IVPB ONE (12:45)
[2018-06-30] MEDS: KETOROLAC 30 MG/ML 1 ML VIAL IVP PRN ×2 (13:21→20:10)
[2018-06-30] MEDS: AMOXICILLIN 500 MG CAP PO SCH (15:44)
[2018-06-30] MEDS ORDERED: PANTOPRAZOLE 40 MG TABLET PO SCH (21:00)
[2018-06-30] MEDS ORDERED: LORATADINE-PSEUDOEPH 5-120 MG 1 EACH TAB.ER.12H PO SCH (21:00)
[2018-06-30] MEDS: SENNOSIDES-DOCUSATE SODIUM 1 EACH TAB PO SCH (22:21)
[2018-07-01] MEDS: AMOXICILLIN 500 MG CAP PO SCH ×2 (00:31→08:56)
[2018-07-01] MEDS: KETOROLAC 30 MG/ML 1 ML VIAL IVP PRN ×2 (03:00→08:56)
[2018-07-01 07:05] LABS: Anisocytosis Moderate; Basophils % (A) 0 %; Eosinophils # (A) 0.1 k/uL (0-0.7); Eosinophils % (A) 1 %; HCT 27.8 % (34.0-46.0); HGB 8.2 gm/dL (11.4-16.0); Hypochromasia Marked; Lymphocytes # (A) 1.6 k/uL (1.0-4.8); Lymphocytes % (A) 20 %; MCH 22.7 pg (25.0-35.0); MCHC 29.6 g/dL (31.0-37.0); MCV 76.7 fL (80.0-100.0); Mean Platelet Volume 6.5; Microcytosis Moderate; Monocytes # (A) 0.5 k/uL (0-1.0); Monocytes % (A) 6 %; Neutrophils # (A) 5.8 k/uL (1.3-7.7); Neutrophils % (A) 72 %; Platelet Count 368 k/uL (150-450); RBC 3.62 m/uL (3.80-5.40); RDW 20.5 % (11.5-15.5)
--- NOTE | 2018-07-01 08:01 | P.DS ---
Providers Expected date of discharge: 07/01/18 Attending physician: Khloe Ocasio Primary care physician: Javier Garcia - Discharge Diagnosis(es) (1) Dysmenorrhea Current Visit: Yes Status: Acute (2) Menometrorrhagia Current Visit: Yes Status: Acute Hospital Course: This is a 33-year-old 0 woman who was admitted for surgical management of chronic dysmenorrhea and menometrorrhagia. She failed conservative measures previously. She was therefore admitted on 11/27/2018 and taken to the operating room where she underwent an uncomplicated robotic-assisted laparoscopic assisted vaginal hysterectomy and cystoscopy. Findings at the time of surgery were notable for normal bilateral ovaries and uterus with small subserosal fibroids. Her preoperative hemoglobin was 9.2 and her postoperative day #1 hemoglobin was 8.2. Her postoperative course was unremarkable. By the evening of postoperative day 0 she was tolerating a general diet and voiding spontaneously with a Thomas catheter out. By the morning of postoperative day # 1 she continued to report good pain control and was able to ambulate without difficulty. Her abdomen was soft and her incisions were dry and intact. She had no vaginal bleeding. She was therefore discharged home with routine instructions for postoperative care and follow-up. Plan - Discharge Summary Discharge Rx Participant: Yes New Discharge Prescriptions: New Acetaminophen-Codeine 300-30mg [Tylenol w/codeine #3] 2 each PO Q6HR PRN #20 tab PRN Reason: Severe Pain Ibuprofen [Motrin] 800 mg PO Q8HR PRN #30 tab PRN Reason: Pain Discontinued Norgestimate-Ethinyl Estradiol [Femynor 28 Tablet] 1 each PO HS No Action Fluticasone Nasal [place] [Flonase Nasal [place]] 2 spr EA NOSTRIL DAILY PRN PRN Reason: ALLERGY SYPTOMS Naproxen Sodium [Aleve] 220 mg PO BID PRN PRN Reason: Pain Budesonide/Formoterol Fumarate [Symbicort 160-4.5 Mcg Inhaler] 2 puff INHALATION DAILY PRN PRN Reason: Allergy Symptoms Sucralfate [Carafate] 1 gm PO DAILY Omeprazole [PriLOSEC] 40 mg PO HS L.acidoph,Paracasei, B.lactis [Probiotic] 1 each PO DAILY Amoxicillin 500 mg PO Q8H Loratadine-Pseudoeph 10-240 mg [Claritin-D 24 Hr] 1 each PO HS Discharge Medication List Fluticasone Nasal [place] [Flonase Nasal [place]] 2 spr EA NOSTRIL DAILY PRN [History] Naproxen Sodium [Aleve] 220 mg PO BID PRN 02/10/17 [History] Budesonide/Formoterol Fumarate [Symbicort 160-4.5 Mcg Inhaler] 2 puff INHALATION DAILY PRN 02/03/18 [History] Omeprazole [PriLOSEC] 40 mg PO HS 02/03/18 [History] Sucralfate [Carafate] 1 gm PO DAILY 02/03/18 [History] Amoxicillin 500 mg PO Q8H 02/09/18 [History] L.acidoph,Paracasei, B.lactis [Probiotic] 1 each PO DAILY 02/09/18 [History] Loratadine-Pseudoeph 10-240 mg [Claritin-D 24 Hr] 1 each PO HS 02/09/18 [History ] Acetaminophen-Codeine 300-30mg [Tylenol w/codeine #3] 2 each PO Q6HR PRN #20 tab 07/01/18 [Rx] Ibuprofen [Motrin] 800 mg PO Q8HR PRN #30 tab 07/01/18 [Rx] Follow up Appointment(s)/Referral(s): Khloe Ocasio MD [STAFF PHYSICIAN] - 2 Weeks Activity/Diet/Wound Care/Special Instructions: Follow-up in the office 2 weeks postoperatively or Cerner with any concerning signs or symptoms including fever greater than 100.5, heavy vaginal bleeding, foul vaginal discharge, redness or drainage from any incision, severe abdominal pain, redness or swelling of the lower extremities. No heavy lifting. Nothing in the vagina, no intercourse for 8 weeks. Discharge Disposition: HOME SELF-CARE
[2018-07-01] MEDS: SENNOSIDES-DOCUSATE SODIUM 1 EACH TAB PO SCH ×2 (08:56→09:16)
[2018-07-01 09:22] VITALS: BP 120/68; PULSE 81; RESP 18; TEMP 98.3
[2018-07-01] MEDS ORDERED: ACETAMINOPHEN TAB 325 MG TAB PO PRN (11:40)
== END 2018-07-01 11:27 | disposition home or self-care (01) ==
LOC: OR 07:34 → 4FBP 11:43 → OR 11:43 → 4FBP 07-01 06:14 → OR 07-01 11:27 → 4FBP 07-01 11:27
PROVIDERS: ADMIT Obstetrics & Gynecology; ATTEND Obstetrics & Gynecology
DX: D25.2 Subserosal leiomyoma of uterus (principal); N80.0 Endometriosis of uterus; J45.909 Unspecified asthma, uncomplicated; K21.9 Gastro-esophageal reflux disease without esophagitis; I10 Essential (primary) hypertension; Z79.2 Long term (current) use of antibiotics; Z79.51 Long term (current) use of inhaled steroids; Z79.899 Other long term (current) drug therapy; Z88.5 Allergy status to narcotic agent; Z88.1 Allergy status to other antibiotic agents; Z91.010 Allergy to peanuts; Z90.49 Acquired absence of other specified parts of digestive tract; Z80.3 Family history of malignant neoplasm of breast; Z83.3 Family history of diabetes mellitus; Z82.49 Family history of ischemic heart disease and other diseases of the circulatory system
CPT/HCPCS: 58571; S2900; 81025; 85025; 86850; 86900; 86901; 88307

== ENCOUNTER → 2018-09-23 | Outpatient (CLI) | payer MEDICAID ==
--- NOTE | 2018-09-24 07:11 | US ---
EXAMINATION TYPE: US thyroid st tissue head/neck DATE OF EXAM: 09/23/2018 COMPARISON: 06/15/2015 CLINICAL HISTORY: E04.1 THYROID NODULE. Thyroid nodule GLAND SIZE: Right Lobe: 4.9 x 1.8 x 2.1 cm Overall Parenchyma: homogenous Left Lobe: 4.9 x 2.0 x 1.9 cm Overall Parenchyma: homogeneous Isthmus Thickness: 0.4 cm NODULES RIGHT: # of nodules measured on right: 0 LEFT: # of nodules measured on left: 0 ISTHMUS: # of nodules measured in the isthmus: 0 Bilateral neck scanned, no evidence of lymphadenopathy. IMPRESSION: Thyroid gland is homogeneous as seen on the exam of 2015 with no measurable nodule. The thyroid gland overall is upper limits of normal size.
== END | disposition home or self-care (01) ==
LOC: RADUSWWP 16:16
PROVIDERS: ATTEND Family Medicine
DX: E04.1 Nontoxic single thyroid nodule (principal)
CPT/HCPCS: 76536

== ENCOUNTER → 2018-12-16 | Outpatient (CLI) | payer MEDICAID ==
--- NOTE | 2018-12-17 01:40 | MR ---
EXAMINATION TYPE: MR knee RT wo con DATE OF EXAM: 12/16/2018 COMPARISON: None HISTORY: Rt knee pain, injury several years ago TECHNIQUE: Multiplanar, multisequence imaging of the right knee is performed without IV contrast. FINDINGS: There is some spurring of the lateral femoral and tibial condyles. There is mild knee joint effusion. The anterior and posterior cruciate ligaments are intact. There is slight increased signal within th e posterior horn of the medial and lateral meniscus without extension to the articular surface. The c ollateral ligaments are intact. There is no evidence of a fracture. Patella is intact. IMPRESSION: No evidence of ligament tear. Knee joint effusion. 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 Mild degenerative signal changes within the posterior horns of the medial and lateral menisci without a meniscal tear.
== END | disposition home or self-care (01) ==
LOC: RADMRIMAIN 16:47
PROVIDERS: ATTEND Orthopaedic Surgery
DX: M17.11 Unilateral primary osteoarthritis, right knee (principal)

== ENCOUNTER → 2020-06-14 | Outpatient (CLI) | payer BC ==
[2020-06-14 19:41] LABS: Basophils # (A) 0.04 X 10*3/uL (0.00-0.10); Basophils % (A) 0.5 %; Eosinophils # (A) 0.09 X 10*3/uL (0.04-0.35); Eosinophils % (A) 1.1 %; HCT 39.6 % (37.2-46.3); HGB 12.7 g/dL (12.0-15.0); Lymphocytes # (A) 2.52 X 10*3/uL (0.90-5.00); Lymphocytes % (A) 31.3 %; MCH 29.7 pg (27.0-32.0); MCHC 32.1 g/dL (32.0-37.0); MCV 92.7 fL (80.0-97.0); Mean Platelet Volume 9.4 fL (9.5-12.2); Monocytes # (A) 0.56 X 10*3/uL (0.20-1.00); Monocytes % (A) 6.9 %; Neutrophils # (A) 4.83 X 10*3/uL (1.80-7.70); Platelet Count 358 X 10*3/uL (140-440); RBC 4.27 X 10*6/uL (4.10-5.20); RDW 12.7 % (11.5-14.5); WBC 8.06 X 10*3/uL (4.50-10.00)
[2020-06-14 20:04] LABS: C Reactive Protein <0.4 mg/dL (0.0-0.8); Rheumatoid Factor, Qnt 6 IU/mL (0-15); Uric Acid 5.6 mg/dL (2.9-7.7)
[2020-06-14 22:16] LABS: Erythrocyte Sedimentation Rate 25 mm/Hr (0-20)
[2020-06-15 21:44] LABS: Anti-DNA, DS unit <1.0 IU/mL; DNA Double-Stranded NEGATIVE (NEGATIVE)
[2020-06-16 10:40] LABS: HLA B27 NEGATIVE
== END | disposition home or self-care (01) ==
LOC: LABWHC1 11:12
PROVIDERS: ATTEND Orthopaedic Surgery
DX: M25.50 Pain in unspecified joint (principal)
CPT/HCPCS: 36415; 84550; 85025; 85652; 86038; 86140; 86225; 86431; 86812

== ENCOUNTER → 2020-06-23 | Outpatient (CLI) | payer BC ==
--- NOTE | 2020-06-24 05:10 | MR ---
EXAMINATION TYPE: MR hip RT wo con DATE OF EXAM: 06/23/2020 COMPARISON: None HISTORY: Rt hip pain Multiplanar multiecho imaging of the pelvis and right hip was performed without contrast. The pelvic ring is intact. The proximal right femur and hip joints show fairly normal signal pattern. There is no edema. There is no evidence of avascular necrosis. There is no evidence of any significa nt hip joint effusion. Urinary bladder is intact. There is no evidence of pelvic mass. There is no si gn of free fluid in the pelvis. IMPRESSION: Negative MR scan of the right hip. No sign of avascular necrosis. No fracture. No evidence of any sig nificant arthritic disease.
== END | disposition home or self-care (01) ==
LOC: RADMRIMAIN 12:35
PROVIDERS: ATTEND Orthopaedic Surgery
DX: M25.551 Pain in right hip (principal)

== ENCOUNTER → 2021-02-01 | Outpatient (CLI) | payer BC ==
--- NOTE | 2021-02-02 07:54 | ECHOF ---
Referral Reason:R94.31 abnormal EKG MEASUREMENTS -------- HEIGHT: 175.3 cm WEIGHT: 113.4 kg BP: RVIDd: 3.3 cm (< 3.3) IVSd: 1.0 cm (0.6 - 1.1) LVIDd: 4.1 cm (3.9 - 5.3) LVPWd: 1.1 cm (0.6 - 1.1) IVSs: 1.5 cm LVIDs: 2.6 cm LVPWs: 1.2 cm LA Diam: 3.6 cm (2.7 - 3.8) Ao Diam: 3.0 cm (2.0 - 3.7) AV Cusp: 2.0 cm (1.5 - 2.6) MV EXCURSION: 21.866 mm (> 18.000) MV EF SLOPE: 127 mm/s (70 - 150) EPSS: 0.4 cm MV E [place]: 0.61 m/s MV DecT: 128 ms MV A [place]: 0.54 m/s MV E/A Ratio: 1.12 RAP: 5.00 mmHg RVSP: 18.01 mmHg FINDINGS -------- Sinus rhythm. This was a techncally difficult study with suboptimal views, , Lumason utilized for enhancement of im ages. LV size, wall thickness and systolic function are normal, with an EF greater than 55%. The left sara tricular size is normal. The right ventricle is normal in size. The left atrial size is normal. The right atrial size is normal. 5.0mg OF Lumason UTLIZED: 2 OR MORE WALL SEGMENTS NOT VISUALIZED. The aortic valve is trileaflet, and appears structurally normal. No aortic stenosis or regurgitation. Mild mitral regurgitation is present. Trace tricuspid regurgitation present. There is no evidence of pulmonary hypertension. There is no pulmonic regurgitation present. There is no pericardial effusion. CONCLUSIONS -------- 1. LV size, wall thickness and systolic function are normal, with an EF greater than 55%. 2. The left ventricular size is normal. 3. The right ventricle is normal in size. 4. The left atrial size is normal. 5. The right atrial size is normal. 6. 5.0mg OF Lumason UTLIZED: 2 OR MORE WALL SEGMENTS NOT VISUALIZED. 7. The aortic valve is trileaflet, and appears structurally normal. No aortic stenosis or regurgitati on. 8. Mild mitral regurgitation is present. 9. Trace tricuspid regurgitation present. 10. There is no pericardial effusion. CANAL BOAT OPERATOR: Mer Cannon RDCS
== END | disposition home or self-care (01) ==
LOC: RADECHMAIN 15:08
PROVIDERS: ATTEND Family Medicine
DX: I08.1 Rheumatic disorders of both mitral and tricuspid valves (principal)
CPT/HCPCS: 93306; Q9950

== ENCOUNTER → 2021-03-23 | Outpatient (CLI) | payer BC ==
--- NOTE | 2021-03-24 04:27 | MR ---
EXAMINATION TYPE: MR lumbar spine wo con DATE OF EXAM: 03/23/2021 COMPARISON: None HISTORY: Low back pain for 20 years that radiates down right leg. Multiplanar multiecho imaging of the lumbar spine without contrast. The vertebra have normal alignment. Posterior elements are intact. There is no compression fracture. The neural foramina are widely patent. There is no lumbar paraspinal mass. Sacroiliac joints are inta ct. Posterior elements are intact. IMPRESSION: Negative MR scan of the lumbar spine. No lumbar disc herniation or spinal stenosis. No fracture.
== END | disposition home or self-care (01) ==
LOC: RADMRIMAIN 18:28
PROVIDERS: ATTEND Psychiatry & Neurology Neurology
DX: M54.16 Radiculopathy, lumbar region (principal)
CPT/HCPCS: 72148

== ENCOUNTER → 2022-09-17 | Outpatient (CLI) | payer BC ==
--- NOTE | 2022-09-18 07:33 | US ---
EXAMINATION TYPE: US thyroid st tissue head/neck DATE OF EXAM: 09/17/2022 COMPARISON: NONE CLINICAL INDICATION: Female, 37 years old with history of E04.9 NONTOXIC SINGLE THYROID NODULE; thyro id nodule GLAND SIZE: Right Lobe: 5.0 x 1.8 x 2.0 cm Overall Parenchyma: homogenous Left Lobe: 5.3 x 1.8 x 1.7 cm Overall Parenchyma: homogeneous Isthmus Thickness: 0.3 cm NODULES RIGHT: # of nodules measured on right: 0 LEFT: # of nodules measured on left: 0 subcentimeter nodule = 0.4cm ISTHMUS: # of nodules measured in the isthmus: 0 Bilateral neck scanned, no evidence of lymphadenopathy. IMPRESSION: No suspicious thyroid nodules. No acute process. No lymphadenopathy.
== END | disposition home or self-care (01) ==
LOC: RADUSWWP 16:36
PROVIDERS: ATTEND Family Medicine
DX: E04.1 Nontoxic single thyroid nodule (principal)
CPT/HCPCS: 76536

== ENCOUNTER → 2022-10-08 | Outpatient (CLI) | payer BC ==
--- NOTE | 2022-10-08 15:15 | US ---
EXAMINATION TYPE: US abdomen complete DATE OF EXAM: 10/08/2022 COMPARISON: NONE CLINICAL INDICATION: Female, 37 years old with history of R74.8 ABN SERUM ENZYME LEVELS; Epigastric p ain, nausea, cholecystectomy, elevated liver enzymes TECHNIQUE: Multiple sonographic images of the abdomen are obtained. FINDINGS: EXAM MEASUREMENTS: Liver Length: 16.8 cm Gallbladder: Surgically absent CBD: 0.5 cm Spleen: 12.5 cm Right Kidney: 11.9 x 4.4 x 3.9 cm Left Kidney: 11.1 x 5.5 x 4.8 cm BUDGET CONTROLLER NOTES: Technical limitations due to large amount of overlying bowel content Pancreas: Obscured by bowel gas Liver: visualized portions appear wnl Gallbladder: Surgically absent Evidence for sonographic Currie's sign: no CBD: wnl Spleen: wnl Right Kidney: no evidence of hydronephrosis Left Kidney: no evidence of hydronephrosis Upper IVC: wnl Abd Aorta: visualized portions appear wnl, proximal obscured by overlying bowel content IMPRESSION: Exam limitations due to overlying bowel. Status post cholecystectomy. No biliary ductal dilatation. N o specific abnormality seen.
== END | disposition home or self-care (01) ==
LOC: RADUSWWP 07:30
PROVIDERS: ATTEND Family Medicine
DX: R74.8 Abnormal levels of other serum enzymes (principal); Z90.49 Acquired absence of other specified parts of digestive tract
CPT/HCPCS: 76700

== ENCOUNTER → 2023-03-11 | Outpatient (CLI) | payer BC ==
--- NOTE | 2023-03-11 08:12 | MM ---
Reason for Exam: Screening (asymptomatic). Last mammogram was performed 5 year(s) and 3 month(s) ago. Indicated Problems: Non-bloody discharge of the right side for 2 Month(s). Patient History: Menarche at age 8. Patient has no children. Left ovary removed at age 33. Right ovary removed at age 33. Hysterectomy at age 33. Postmenopausal. Currently using Hormonal Contraceptives, starting at age 26. Maternal aunt had breast cancer, age 60. Paternal grandmother had breast cancer at or over age 50. Paternal grandmother had ovarian cancer at or over age 50. Paternal aunt had breast cancer at or over age 50. Paternal aunt had ovarian cancer at or over age 50. Risk Values: Dixie 5 year model risk: 0.6%. NCI Lifetime model risk: 12.2%. Prior Study Comparison: 12/24/2017 Bilateral Diagnostic Mammogram, [facility]. Tissue Density: There are scattered fibroglandular densities. Findings: Analyzed By CAD. There is no suspicious group of microcalcifications or new suspicious mass in either breast. Overall Assessment: Negative, BI-RAD 1 Management: Screening Mammogram of both breasts in 1 year. A clinical breast exam by your physician is recommended on an annual basis and results should be correlated with mammographic findings. Note on Dixie scores and lifetime risk: 1. A Dixie score greater than 3% is considered moderate risk. If this is the case, consider specialist referral to assess eligibility for a risk reducing agent. If overall lifetime risk for the development of breast cancer is 20% or higher, the patient may qualify for future screening with alternating mammogram and breast MRI. Electronically signed and approved by: Flo Jalloh D.O.
== END | disposition home or self-care (01) ==
LOC: RADMAMWWP 07:02
PROVIDERS: ATTEND Obstetrics & Gynecology
DX: Z12.31 Encounter for screening mammogram for malignant neoplasm of breast (principal); Z78.0 Asymptomatic menopausal state; Z80.3 Family history of malignant neoplasm of breast; Z80.41 Family history of malignant neoplasm of ovary
CPT/HCPCS: 77063; 77067

== ENCOUNTER 2023-03-12 08:17 | Day surgery (SDC) | payer BC ==
[~2023-03-12 08:17] MED LIST changes: -DEXAMETHASONE SOD PHOSPHATE 10 MG/ML 1 ML VIAL IV ONE; +LACTATED RINGERS 1,000 ML IV SCH; +LIDOCAINE 1% (10MG/ML) FOR IV START INTRADERMA PRN; -MIDAZOLAM (PF) 2 MG/2 ML VIAL IV PRN; -ONDANSETRON 4 MG/2 ML VIAL IVP ONE; -SCOPOLAMINE 1.5MG/72HR PATCH TRANSDERM ONE; -ceFAZolin IN SWFI 2 GM/20 ML SYRINGE IVP ONE
[2023-03-12 09:01] VITALS: TEMP 98.7
[2023-03-12] MEDS ORDERED: PROPOFOL 10 MG/ML 20 ML VIAL IV ONE (09:12)
[2023-03-12] MEDS ORDERED: LIDOCAINE 2% (PF) 20 MG/ML 5 ML VIAL ONE (09:12)
--- NOTE | 2023-03-12 09:20 | P.PCN ---
Date of Procedure: 03/12/23 Procedure(s) Performed: BRIEF HISTORY: Patient is a 37-year-old, pleasant, white female scheduled for an upper endoscopy as a part of evaluation of epigastric pain and nausea for the last 5 years duration. She is presently on Protonix 40 mg daily as well as Carafate as needed with some help in her symptoms. PROCEDURE PERFORMED: Esophagogastroduodenoscopy with biopsy. PREOPERATIVE DIAGNOSIS: Chronic epigastric pain and nausea 5 years duration. IV sedation per anesthesia. PROCEDURE: After informed consent was obtained, the patient was brought into the endoscopy unit. IV sedation was administered by Anesthesia under continuous monitoring. Initially the Olympus GIF-140 video endoscope was inserted into the mouth. Esophagus intubated without any difficulty. It was gradually advanced into the stomach and duodenum and carefully examined. The bulb and the second part of the duodenum appeared normal. Biopsies were done from the duodenum to rule out celiac disease. The scope at this time was withdrawn to the stomach, adequately insufflated with air, and upon careful examination, mucosa of the antrum had mild gastritis and biopsies were done from this area. There were several small gastric polyps noted in the proximal body the stomach which were biopsied. Rest of the, body, cardia and the fundus appeared normal. The scope was then withdrawn into the esophagus. The GE junction was located at 39 cm from the incisors. The esophagus appeared normal. There were no erosions or ulcerations seen and the patient tolerated the procedure well. IMPRESSION: 1. Mild antral gastritis. 2. Small gastric polyps. RECOMMENDATIONS: The findings of this examination were discussed with the jose antonio ent as well as a family. She was advised to follow with the biopsy plus. Continue with current medications and follow antireflux measures. Follow up in office in 3-4 weeks..
[2023-03-12 09:50] VITALS: BP 145/76; PULSE 58; RESP 18
== END 2023-03-12 10:02 | disposition home or self-care (01) ==
LOC: ORWHC2ENDO 08:17
PROVIDERS: ATTEND Internal Medicine Gastroenterology
DX: K21.9 Gastro-esophageal reflux disease without esophagitis (principal); K29.70 Gastritis, unspecified, without bleeding; D72.820 Lymphocytosis (symptomatic); I10 Essential (primary) hypertension; F41.9 Anxiety disorder, unspecified; K31.7 Polyp of stomach and duodenum; J45.909 Unspecified asthma, uncomplicated; Z88.8 Allergy status to other drugs, medicaments and biological substances; Z88.0 Allergy status to penicillin; Z88.1 Allergy status to other antibiotic agents; Z79.1 Long term (current) use of non-steroidal anti-inflammatories (NSAID); Z79.891 Long term (current) use of opiate analgesic; Z98.890 Other specified postprocedural states; Z79.899 Other long term (current) drug therapy
CPT/HCPCS: 88305; 88342; 43239; J2704; J2001

== ENCOUNTER → 2023-05-09 | Outpatient (CLI) | payer BC ==
--- NOTE | 2023-05-09 20:21 | US ---
EXAMINATION TYPE: US thyroid st tissue head/neck DATE OF EXAM: 05/09/2023 COMPARISON: 09/17/2022. CLINICAL INDICATION: Female, 38 years old with history of E06.3 AUTOIMMUNE THYROIDITIS; Patient state s hair loss. No abn labs. GLAND SIZE: Right Lobe: 4.6 x 1.9 x 1.7 cm Overall Parenchyma: homogeneous Left Lobe: 4.5 x 2.0 x 1.7 cm Overall Parenchyma: homogeneous Isthmus Thickness: 0.3 cm NODULES RIGHT: # of nodules measured on right: 0 LEFT: # of nodules measured on left: 0, cystic 5 mm nodule does not meet criteria for Terrace severo racterization. ISTHMUS: # of nodules measured in the isthmus: 0 Bilateral neck scanned, no evidence of lymphadenopathy. IMPRESSION: Homogenous thyroid gland, No suspicious thyroid nodules. No significant change from prior. 2017 ACR TI-RADS LEVEL: TR-RADS 2 - Not Suspicious: No FNA *Highest TI-RADS level nodule reported
== END | disposition home or self-care (01) ==
LOC: RADUSWWP 16:15
PROVIDERS: ATTEND Family Medicine
DX: E06.3 Autoimmune thyroiditis (principal)
CPT/HCPCS: 76536

== ENCOUNTER → 2023-12-23 | Outpatient (CLI) | payer BC ==
--- NOTE | 2024-01-21 10:42 | US ---
Site ID [facility] Maria Isabel Lo ID [id number] Age/Gender: 38Y, F Order # N/A Procedure US LIVER Date 12/23/2023 7:17:00 AM INDICATION: Patient age: Female; 38 year old; Reason for study: Elevated liver enzymes, history of cholecystectomy in 2011 COMPARISON: Abdominal ultrasound 10/08/2022. TECHNIQUE: Multiple grayscale and color doppler ultrasound images of the right upper abdomen obtained utilizing transabdominal imaging. FINDINGS: Exam is limited due to overlying bowel gas. PANCREAS: Limited evaluation of the pancreas secondary to bowel. LIVER: The liver demonstrates hyperechoic echotexture, which is difficult to penetrate sonographically. This ultrasound appearance also degrades sensitivity for the detection of masses. However, there is no gr oss evidence of dilated ducts, cystic structures, or solid mass. Measures up to 16.8 cm in greatest dimension. GALLBLADDER: The gallbladder is surgically removed. The common duct measures approximately 4 mm. RIGHT KIDNEY: The right kidney measures 12.0 x 5.3 x 3.6 cm, without evidence of hydronephrosis, shadowing calculus , or contour deforming solid mass. Renal parenchymal echogenicity is within normal limits. IMPRESSION: 1. No sonographic evidence for acute process. 2. Hepatic steatosis. 3. Postcholecystectomy changes.
== END | disposition home or self-care (01) ==
LOC: RADUSWWP 17:03
PROVIDERS: ATTEND Family Medicine
DX: R74.01 Elevation of levels of liver transaminase levels (principal); K76.0 Fatty (change of) liver, not elsewhere classified
CPT/HCPCS: 76705

== ENCOUNTER → 2024-03-31 | Outpatient (CLI) | payer BC ==
[2024-03-31 13:58] VITALS: BP 115/78; PULSE 75; RESP 12; TEMP 98.3
--- NOTE | 2024-03-31 14:35 | P.SLEEP ---
History of Present Illness DATE: 03/31/2024 CONSULTATION/NEW PATIENT EVALUATION HISTORY OF PRESENT ILLNESS/SLEEP-WAKE EVALUATION: 38-year-old lady had been evaluated in the sleep center for possible obstructive sleep apnea hypopnea syndrome. SLEEP SCHEDULE: Usually sleep schedule from 10 PM to 7 AM on weekdays and from 11 PM to 9 AM on weekend. FALLING ASLEEP: Sometimes patient has difficulties with falling asleep, used to read in bedroom. DURING SLEEP: Usually patient sleeps on the side position with snoring and awakenings from sleep up to 3 times with 1 episode of nocturia. Positive history of ptosis and torn during the night. No history of hypnogogical hallucinations, sleep paralysis, or cataplexy. Positive history of grinding teeth and heartburn. DURING THE DAY/WAKE STATE: In the morning patient wake up tired, has difficulties to pay attention, has problems with memory, concentration, anxiety.. [place] sleepiness scale is 0. Patient does not take naps. PAST MEDICAL HISTORY: Hypertension, supraventricular tachycardia according to patient. PAST SURGICAL HISTORY: Partial hysterectomy, cholecystectomy, surgical treatment for carpal tunnel syndrome on the right side. MEDICATIONS: Have been reviewed, please see below. SOCIAL HISTORY: Please see below. FAMILY HISTORY: Please see below. REVIEW OF SYSTEMS: Snoring, multiple awakenings from sleep. No fevers. No double vision. No recent chest pain. No shortness of breath. No abdominal pain. No bleeding episodes. No blood in urine. No seizure episodes. PHYSICAL EXAMINATION: GENERAL: A pleasant patient without any distress. VITAL SIGNS: Have been reviewed, please see below, weight 249 pounds, BMI 37.8. HEENT: PERRLA, EOMI. Evaluation of oropharynx showed tongue protrudes midline, low position of soft palate Mallampati 23, short distance between soft palate and posterior pharyngeal wall. NECK: Supple. No JVD. Thyroid is not palpable. 17 inches in circumference. LUNGS: Clear to percussion and to auscultation. Good air exchange. No wheezing or rhonchi. HEART: S1, S2 regular. No murmurs, gallops or rubs. ABDOMEN: Soft and nontender. Bowel sounds are present. No organomegaly appreciated. EXTREMITIES: No clubbing or cyanosis. MANAGER COLLECTION: Awake, alert, and oriented x3. Cranial nerves 2 to 7 intact. There is no fasciculation or atrophy noted. No focal deficits observed. ASSESSMENT: 1. Snoring, multiple awakenings from sleep, short distance between soft palate and posterior pharyngeal wall, wide neck 17 inches in circumference. Obstructive sleep apnea hypopnea syndrome. 2. Obesity, BMI 37.8. 3. Hypertension. 4. Anxiety. 5 history of SVT. 6 . History of grinding teeth. 7. Status post partial hysterectomy. 8. Status post cholecystectomy. 9 . Status post surgical treatment for carpal tunnel syndrome on the right side. PLAN: 1. Home sleep apnea test for evaluation of patient's breathing during sleep. 2. Following plan after reading sleep study. 3. Preferable position during sleep on the side. 4. No driving if patient feels any sleepiness. Patient is aware of civil and criminal liability for unsafe driving. 5. Sleep hygiene with regular sleep time for at least 7.5-8 hours. 6. Watching and losing weight. Thank you very much for referring this patient for consultation. Sincerely, Zhang Garcia MD, PhD, FAASM. Diplomat of [employer], Sleep Medicine Board by [employer] Transport Specialist of [facility] [place] cc: Javier Garcia DO Past Medical History Past Medical History: Asthma, GERD/Reflux, Hypertension, Thyroid Disorder Additional Past Medical History / Comment(s): FAST HEART BEAT, MIGRAINE HEADACHE , History of Any Multi-Drug Resistant Organisms: None Reported Past Surgical History: Cholecystectomy, Hysterectomy, Orthopedic Surgery Additional Past Surgical History / Comment(s): carpel tunnel rt wrist,wisdom teeth extractions, gall bladder Past Anesthesia/Blood Transfusion Reactions: No Reported Reaction, Postoperative Nausea & Vomiting (PONV) Past Psychological History: Anxiety Smoking Status: Never smoker Past Alcohol Use History: Rare Past Drug Use History: None Reported - Past Family History Mother History Unknown: Yes Family Medical History: Hypertension Additional Family Medical History / Comment(s): heart problems,stomach ulcers Father History Unknown: Yes Family Medical History: No Reported History Additional Family Medical History / Comment(s): depression Medications and Allergies Home Medications Medication Instructions Recorded Confirmed Type Sucralfate [Carafate] 1 gm PO DAILY PRN 02/03/18 03/31/24 History Baclofen 10 mg PO HS 03/10/23 03/31/24 History Losartan Potassium 100 mg PO HS 03/10/23 03/31/24 History Metoprolol Succinate (ER) [Toprol 50 mg PO HS 03/10/23 03/31/24 History Xl] Pantoprazole [Protonix] 40 mg PO DAILY 03/10/23 03/31/24 History Amitriptyline HCl 10 mg PO 03/31/24 History Allergies Allergy/AdvReac Type Severity Reaction Status Date / Time ferrous sulfate Allergy Unknown Verified 03/15/24 09:27 hydrocodone bitartrate Allergy anxiety Verified 03/15/24 09:27 [From Vicodin] attack states "tylenol ok" hydromorphone HCl Allergy anxiety Verified 03/15/24 09:27 [From Dilaudid] attack peanut Allergy Anaphylaxis Verified 03/15/24 09:27 soy Allergy Anaphylaxis Verified 03/15/24 09:27 amoxicillin [From Augmentin] AdvReac Nausea & Verified 03/15/24 09:27 Vomiting clavulanic acid AdvReac Nausea & Verified 03/15/24 09:27 [From Augmentin] Vomiting Physical Exam Vitals: Vital Signs Temp Pulse Resp BP Pulse Ox 03/31/24 13:55 98.3 F 75 12 115/78 100 Sleep Note - Sleep Data ESS Total: 0 - Sleep Note Sleep Note: Temperature: 98.3 F Pulse Rate: 75 Respiratory Rate: 12 Blood Pressure: 115/78 SpO2: 100 Height: Weight: BMI: Neck Circumference: 17
== END ==
LOC: MERGE 13:20 → 3 N SLEEP 13:27
PROVIDERS: ATTEND Internal Medicine
DX: G47.33 Obstructive sleep apnea (adult) (pediatric) (principal); E66.9 Obesity, unspecified; I10 Essential (primary) hypertension; F41.9 Anxiety disorder, unspecified; G47.63 Sleep related bruxism; Z86.79 Personal history of other diseases of the circulatory system; Z90.49 Acquired absence of other specified parts of digestive tract; Z90.711 Acquired absence of uterus with remaining cervical stump; Z98.890 Other specified postprocedural states; Z87.39 Personal history of other diseases of the musculoskeletal system and connective tissue; Z68.37 Body mass index [BMI] 37.0-37.9, adult; Z88.8 Allergy status to other drugs, medicaments and biological substances; Z88.5 Allergy status to narcotic agent; Z91.010 Allergy to peanuts; Z88.0 Allergy status to penicillin; Z79.899 Other long term (current) drug therapy
CPT/HCPCS: 99211

== ENCOUNTER → 2024-04-14 | Outpatient (CLI) | payer BC ==
--- NOTE | 2024-04-15 10:51 | P.PCN ---
Description of Procedure: CLINICAL: A home sleep apnea test has been done for confirmation of possible obstructive sleep apnea-hypopnea syndrome. DESCRIPTION OF PROCEDURE: RESULTS: Recording time was 7 hours 4 minutes. Evaluation time was 6 hours 53 minutes. Evaluation time is sufficient for making conclusion about results of the test. Raw data of sleep recording has been reviewed and is adequate. Respiratory channel showed 2 apneas and 116 hypopneas. Apnea-hypopnea index was 17.0 per hour. Pulse rate in the range between minimum 48, maximum 104, average 70 by computer calculation. Lowest desaturation was 80%. IMPRESSION: 1. Moderate Obstructive Sleep Apnea Hypopnea Syndrome. Please see other impressions from consultation. PLAN: 1. The patient will be started on auto-PAP treatment for correction of respiratory abnormallities during sleep. 2. I will see patient for follow up visit to discuss results of the test, evaluate clinical response on treatment with PAP therapy and make any necessary adjustments related to mask fitting, pressure, and humidification. 3. Watching and losing weight. 4. Sleep hygiene with regular time in bed for at least 8 hours. 5. No driving if feeling any sleepiness. Thank you very much for allowing me to participate in the management of your patient. Sincerely, Zhang Garcia MD, PhD, FAASM Diplomat of [employer] Sleep Medicine Board of [employer] Charge Loader of [facility] [place] cc: Marielena Garcia DO
== END ==
LOC: 3 N SLEEP 17:04
PROVIDERS: ATTEND Internal Medicine
DX: G47.33 Obstructive sleep apnea (adult) (pediatric) (principal); Z88.5 Allergy status to narcotic agent; Z88.0 Allergy status to penicillin; Z91.010 Allergy to peanuts; Z91.018 Allergy to other foods; Z88.1 Allergy status to other antibiotic agents

== ENCOUNTER → 2024-08-23 | Outpatient (CLI) | payer BC ==
--- NOTE | 2024-08-23 15:00 | NM ---
INDICATION: Patient age:Female; 39 years old; Reason for study: M54.50 LOW BACK PAIN; PHH. COMPARISON: MRI lumbar spine 03/23/2021. TECHNIQUE: Intravenous administration of 24.6 mCi of Technetium 99m-Medronate followed by multiple sc intigraphic images of the appendicular and axial skeleton. Additionally, small field of view planar a nterior and posterior images of the lumbosacral spine and pelvis. Lastly, coronal, transverse, and sa gittal SPECT images of the lumbosacral spine and pelvis were generated for review. FINDINGS: No abnormal uptake is identified within the appendicular or axial skeleton to suggest metastatic dise ase. No photopenic areas or areas of increased activity are identified. Physiologic radiotracer activity is demonstrated in the kidneys and bladder. IMPRESSION: No abnormal radiotracer uptake identified. [facility], , 08/23/2024 2:58 PM
== END | disposition home or self-care (01) ==
LOC: RADNMMAIN 09:36
PROVIDERS: ATTEND Orthopaedic Surgery Orthopaedic Surgery of the Spine
DX: M54.50 Low back pain, unspecified (principal)
CPT/HCPCS: 78306; 78803; A9503